=== PATIENT | male | born 1985 | race Caucasian/White ===

== ENCOUNTER 2024-11-24 13:47 | Emergency (ER) | payer MEDICAID ==
[~2024-11-24] VITALS: Ht 182.9 cm; Wt 94.0 kg
[2024-11-24 13:51] VITALS: O2SAT 98
[2024-11-24] MEDS: BACITRACIN ZINC OINT UDPKT TOP ONE ×2 (14:39→19:04)
[2024-11-24] MEDS: TETANUS, DIPHTHERIA, PERTUSSIS VAC/PF 0.5ML (>10YR OLD) IM ONE (14:39)
[2024-11-24] MEDS: LIDOCAINE HCL/EPINEPHRINE 1%-EPI 1:100,000 20ML VIAL INFIL ONE (14:39)
[2024-11-24] MEDS: KETOROLAC 15MG/ML VIAL IM ONE (14:40)
[2024-11-24] MEDS: ACETAMINOPHEN 325MG TABLET PO ONE (14:40)
[2024-11-24] MEDS: HYDROCODONE/ACETAMINOPHEN 10/325MG TABLET PO ONE (14:57)
[2024-11-24] MEDS ORDERED: IBUP-2029 MT (18:33)
[2024-11-24] MEDS ORDERED: HYDR-4001 MT (18:33)
[2024-11-24] MEDS ORDERED: SULF1TAB48 MT (18:33)
[2024-11-24] MEDS ORDERED: BO1 TP (18:33)
[2024-11-24] MEDS ORDERED: CEPH500T MT (18:33)
[2024-11-24 18:58] VITALS: BP 126/82; PULSE 76; RESP 16; TEMP 36.7; O2SAT 100
== END 2024-11-24 19:14 | disposition home or self-care (01) ==
LOC: ER 13:47
DX: S51.812A Laceration without foreign body of left forearm, initial encounter (principal); Z79.899 Other long term (current) drug therapy; X58.XXXA Exposure to other specified factors, initial encounter; Y93.89 Activity, other specified; Y92.89 Other specified places as the place of occurrence of the external cause; Y99.8 Other external cause status
CPT/HCPCS: 90715; 12006; 90471; 96372; 99284; J1885; J2004; Z7610 ×2

== ENCOUNTER 2024-12-09 15:18 | Emergency (ER) | payer MEDICAID ==
[~2024-12-09] VITALS: Ht 182.9 cm; Wt 99.0 kg
[~2024-12-09 15:18] MED LIST: BO1 TP; CEPH500T MT; HYDR-4001 MT; IBUP-1455 MT; SULF1TAB48 MT
[2024-12-09 15:40] VITALS: O2SAT 100
[2024-12-09] MEDS ORDERED: DOXY100T2 MT (19:52)
[2024-12-09] MEDS: KETOROLAC 15MG/ML VIAL IM ONE (19:52)
[2024-12-09] MEDS: BACITRACIN ZINC OINT UDPKT TOP ONE (20:44)
[2024-12-09 20:55] VITALS: BP 126/92; PULSE 70; RESP 18; TEMP 37.1; O2SAT 97
== END 2024-12-09 20:56 | disposition home or self-care (01) ==
LOC: ER 15:18
DX: S51.812D Laceration without foreign body of left forearm, subsequent encounter (principal); L03.114 Cellulitis of left upper limb; X58.XXXD Exposure to other specified factors, subsequent encounter
CPT/HCPCS: 96372; 99283; J1885; Z7610; A6449